=== PATIENT | female | born 1930 | race Caucasian/White ===

== ENCOUNTER 2019-06-21 13:23 | Observation (INO) ==
--- NOTE | 2019-06-21 14:32 | DR.URINEF ---
HPI Time Seen Time Seen by Provider: 06/21/19 14:32 PCP Primary Care Physician: IAN Complaint Chief Complaint Doctors Comments: 89yo female presented for AMS. Daughter reports mother woke up this morning and was more confused. She was took a urine dipstick and was concern for UTI. Pt reports increase frequency and dysuria. Denies any CP, SOB, abd pain, n/v or pain. Chief Complaint:: AMS, UTI SYMPTOMS Self Treatment fo Chief Complaint: NONE Reviewed Nurses Notes Reviewed: Yes Source History Provided: Patient and Family Member Mode of Arrival Mode of Arrival: Wheelchair Timing Onset of Chief Complaint: 06/21/19 Duration Duration: Intermittent Duration: Hours Context History of: UTI Quality Pain is: Burning Severity Pain: Mild Inability to Void: None Location Pain Location: None PMH PMH Past Medical History: Yes Past Medical History: Coronary Artery Disease, Dyslipidemia and Hyperthyroidism Past Surgical History: Yes Surgical History: Abdominal Surgery, Appendectomy, Hysterectomy, Mastectomy, Ortho Surgery and Tonsillectomy Past Surgical History Comment: COLON SURGERY Family History History of Family Medical Conditions: Yes Family Medical History: Coronary Artery Disease and Hypertension Social History Does patient currently use any type of tobacco product: No Have you used tobacco products in the last 12 months: No Type of Tobacco Use: None Does any household member use tobacco: No Alcohol Use: None Do you use any recreational Drugs:: No Lives With: Family Lives Where: Home infectious screening In the last 2 months have you had wt loss of >10#?: NO Have you had fever, night sweats or hemotysis?: No Have you traveled outside the country in the last 6 months?: No Isolation: Standard ROS Review of Systems Constitutional: negative Chills, Fever, Weakness and Loss of Appetite Eyes: negative Blurred Vision ENTM: negative Nose Congestion Respiratoy: negative Non-Productive Cough and Short of Breath Cardiovascular: negative Chest Pain and Edema Gastrointestinal/Abdominal: negative Abdominal Pain, Diarrhea, Nausea and Vomiting Genitourinary: Dysuria and Frequency; negative Hematuria and Bleeding Neurological: negative Weakness, Problems Walking and Speech Problem Musculoskeletal: negative Back Pain Integumentary: negative Rash Hematologic/Lymphatic: negative Easy Bleeding Endocrine: negative Decreased Appetite Psychiatric: negative Depression All Other Systems: Reviewed and Negative PE Vital Signs Vitals: Temperature 96.5 F Pulse Rate 76 Respiratory Rate 18 Blood Pressure [Right Arm] 134/67 Blood Pressure 166/72 O2 Sat by Pulse Oximetry 99 General Limitations: No Limitations General Appearance: Alert and In No Apparent Distress Head Head Exam: Normal Inspection, Atraumatic and Normocephalic Eyes Eye exam: Normal Appearance, PERRL and EOMI; negative Scleral Icterus ENT ENT Exam: Normal Exam, Normal Oropharynx and Mucous Membranes Moist Neck Neck Exam: Normal Inspection and Full ROM Respiratory Respiratory Exam: Normal Lung Sounds Bilat; negative Respiratory Distress Cardiovascular Cardiovascular Exam: Regular Rate and Normal Rhythm Abdominal Exam Abdominal Exam: Normal Inspection, Normal Bowel Sounds, Soft and Other (healing abd incision); negative Distention and Tenderness Extremities Extremities Exam: Normal Inspection, Full ROM and Normal Capillary Refill; negative Edema Back Back Exam: Normal Inspection and Full ROM; negative Tenderness, (R) CVA Tenderness and (L) CVA Tenderness Neurologic Neurological Exam: Alert, Oriented X3, Normal Gait and Reflexes Normal; negative Motor Sensory Deficit Psychiatric Psychiatric Exam: Normal Affect and Normal Mood Skin Skin Exam: Warm, Dry, Intact and Normal Color MDM Additional Information Obtained Additional Information Obtained From: Old Records Differential Diagnosis Differential Diagnosis: Pyelonephritis, Urinary retention and UTI COURSE Reevaluation 1st: Unchanged (pt at baseline. BP elevated. WIll order CT head and given Amlodipine 5mg x1. COntinue to monitor) 2nd: Improved (BP improving. D/w pt and family abn ct finding. Will admit for MRI and further evaluation) Consultation Consultation Comments: 17:[address] Cedillo for admission and will admit. Education/Counseling Education/Counseling: Patient, Family, Education and Counseling Educated On: Treatment, Diagnosis, Prognosis and Needs for Follow Up (pcp) ROR Labs Reviewed Laboratory Results Reviewed?: Yes Result Diagrams: 06/21/19 15:27 06/21/19 15:27 Laboratory: WBC 6.5 X10^3/uL (3.6-10.0) 06/21/19 15:27 RBC 3.76 X10^6/uL (3.5-5.4) 06/21/19 15:27 Hgb 11.5 g/dL (12.0-16.0) L 06/21/19 15:27 Hct 35.6 % (36.0-47.0) L 06/21/19 15:27 MCV 94.5 fL (80.0-100.0) 06/21/19 15:27 MCH 30.7 pg (27.0-34.0) 06/21/19 15: MCHC 32.5 g/dL (33.0-35.0) L 06/21/19: RDW 15.4 % (11.6-16.5) 06/21/19 15: Plt Count 123 X10^3/uL (150.0-450.0) L 06/21/19: MPV 9.2 fL (7.4-11.0) 06/21/19 15: Neut % (Auto) 58.4 % (42.0-75.0) 06/21/19: Lymph % (Auto) 30.7 % (21.0-51.0) 06/21/19: [place] % (Auto) 8.6 % (0.0-13.0) 06/21/19: Eos % (Auto) 1.5 % (0.9-2.9) 06/21/19: Baso % (Auto) 0.8 % (0.2-1.0) 06/21/19 15: Neut # (Auto) 3.8 x10^3/uL (2.2-4.8) 06/21/19: Lymph # (Auto) 2.0 X10^3/uL (1.3-2.9) 06/21/19 15: [place] # (Auto) 0.6 x10^3/uL (0.3-0.8) 06/21/19: Eos # (Auto) 0.1 x10^3/uL (0.0-0.2) 06/21/19 15: Baso # (Auto) 0.1 X10^3/uL (0.0-0.1) 06/21/19 15: Absolute Nucleated RBC 0.0 /100WBC 06/21/19 15: Sodium 141 mmol/L (136-145) 06/21/19 15: Corrected Sodium TNP 06/21/19 15: Potassium 3.5 mmol/L (3.5-5.1) 06/21/19: Chloride 107 mmol/L (98-107) 06/21/19 15: Carbon Dioxide 22.5 mmol/L (21-32) 06/21/19 15:27 BUN 9 mg/dL (7-18) 06/21/19 15:27 Creatinine 0.89 mg/dL (0.55-1.02) 06/21/19 15:27 Est GFR (MDRD) Af Amer > 60 (>60) 06/21/19 15:27 Est GFR (MDRD) Non-Af > 60 (>60) 06/21/19 15:27 Glucose 87 mg/dL (65-99) 06/21/19 15:27 Calcium 8.6 mg/dL (8.5-10.1) 06/21/19 15:27 Troponin I < 0.02 ng/mL (0-1.5) 06/21/19 15:27 Specimen Type Clean catch urine 06/21/19 14:21 Urine Color Yellow (YELLOW) 06/21/19 14:21 Urine Appearance Hazy (CLEAR) 06/21/19 14:21 Urine pH 6.0 (5.0 - 8.0) 06/21/19 14:21 Ur Specific [place] 1.020 (1.000-1.030) 06/21/19 14:21 Urine Protein 2+ (NEGATIVE) 06/21/19 14:21 Urine Glucose (UA) Negative (NEGATIVE) 06/21/19 14:21 Urine Ketones Negative (NEGATIVE) 06/21/19 14:21 Urine Occult Blood Negative (NEGATIVE) 06/21/19 14:21 Urine Nitrite Negative (NEGATIVE) 06/21/19 14:21 Urine Bilirubin Negative (NEGATIVE) 06/21/19 14:21 Urine Urobilinogen Normal (NORMAL) 06/21/19 14:21 Ur Leukocyte Esterase 1+ (NEGATIVE) 06/21/19 14:21 Urine RBC None seen /HPF (0-3) 06/21/19 14:21 Urine WBC 0-2 /HPF (0-5) 06/21/19 14:21 Ur Squamous Epith Cells Negative /HPF (NEGATIVE) 06/21/19 14:21 Urine Bacteria Negative /HPF (NEGATIVE) 06/21/19 14:21 Urine Mucus Few /HPF (NEGATIVE) 06/21/19 14:21 Ur Culture Indicated? No/not indicated 06/21/19 14:21 Other Results Comments: UA negative Hb 11.5, plt [address] head: low attenuation focus in the left cerebellar hemisphere concern for infarct vs hilda. recommend MRI with contrast XRAY XRAY Interpreted by: Radiologist EKG Rate: 74 [place]: Normal Rhythm: NSR Block: None Hypertrophy: None ST: Nonsp (Prolong QTc 514, t wave flatting in V1 V2 Lead II III. interpeted by me) Opioid Opioid Risk Tool Age (Pablo box if 16-45): No History of Preadolescent Sexual Abuse: No Total: 0 Total Score Risk Category: Low Risk Copyright: [facility] predicting aberrant behaviors Diagnosis Discharge Problem: Acute alteration in mental status, Abnormal CT scan of head, Hypertensive crisis Instructions Forms: Excuse From Work Patient Portal ADDITIONAL NOTES Additional Notes Additional Notes: I have personally reviewed your medications, lab results, imaging and time was spent discussion results. Patient educated on their health issue. They verbalized their understanding and agreed with plan of care. Instruction were given to patient at discharge. Condition: Stable Disposition: Admission
[2019-06-21 14:49] LABS: BILIRUBIN,URINE NEGATIVE (NEGATIVE); BLOOD/HEMOGLOBIN,URINE NEGATIVE (NEGATIVE); GLUCOSE, URINE NEGATIVE (NEGATIVE); KETONES,URINE NEGATIVE (NEGATIVE); LEUKOCYTE ESTERASE ,URINE 1+ (NEGATIVE); NITRITES,URINE NEGATIVE (NEGATIVE); PROTEIN,URINE 2+ (NEGATIVE); UROBILINOGEN,URINE NORMAL (NORMAL)
[2019-06-21 14:54] LABS: APPEARANCE,URINE HAZY (CLEAR); COLOR,URINE YELLOW (YELLOW)
[2019-06-21 14:55] LABS: BACTERIA,URINE NEGATIVE /HPF (NEGATIVE); MUCUS,URINE FEW /HPF (NEGATIVE); RBC,URINE NONE SEEN /HPF (0-3); SQUAMOUS EPITHELIAL CELL,UR NEGATIVE /HPF (NEGATIVE)
[2019-06-21] MEDS ORDERED: NS 1000 ML 1,000 ML IV ONE (14:57)
[2019-06-21] MEDS ORDERED: NS 1000 ML 1,000 ML ONE (15:02)
[2019-06-21 15:39] LABS: BASOPHILS # (AUTO) 0.1 X10^3/uL (0.0-0.1); BASOPHILS % (AUTO) 0.8 % (0.2-1.0); EOSINOPHILS # (AUTO) 0.1 x10^3/uL (0.0-0.2); EOSINOPHILS % (AUTO) 1.5 % (0.9-2.9); HEMATOCRIT 35.6 % (36.0-47.0); HEMOGLOBIN 11.5 g/dL (12.0-16.0); LYMPHOCYTES % (AUTO) 30.7 % (21.0-51.0); MEAN CORPUSCULAR HEMOGLOBIN 30.7 pg (27.0-34.0); MEAN CORPUSCULAR HGB CONC 32.5 g/dL (33.0-35.0); MEAN CORPUSCULAR VOLUME 94.5 fL (80.0-100.0); MEAN PLATELET VOLUME 9.2 fL (7.4-11.0); MONOCYTES # (AUTO) 0.6 x10^3/uL (0.3-0.8); MONOCYTES % (AUTO) 8.6 % (0.0-13.0); NEUTROPHILS # (AUTO) 3.8 x10^3/uL (2.2-4.8); NEUTROPHILS % (AUTO) 58.4 % (42.0-75.0); PLATELET COUNT 123 X10^3/uL (150.0-450.0); RED BLOOD COUNT 3.76 X10^6/uL (3.5-5.4); RED CELL DISTRIBUTION WIDTH 15.4 % (11.6-16.5); WHITE BLOOD COUNT 6.5 X10^3/uL (3.6-10.0)
[2019-06-21 15:56] LABS: BLOOD UREA NITROGEN 9 mg/dL (7-18); CALCIUM 8.6 mg/dL (8.5-10.1); CARBON DIOXIDE 22.5 mmol/L (21-32); CHLORIDE 107 mmol/L (98-107); CREATININE 0.89 mg/dL (0.55-1.02); SODIUM 141 mmol/L (136-145); eGFR NON BLACK RACES > 60 (>60)
[2019-06-21] MEDS ORDERED: NORVASC TAB 5 MG PO ONE (16:35)
--- NOTE | 2019-06-21 17:16 | CT ---
STUDY: CT HEAD WITHOUT CONTRAST HISTORY: Altered mental status. COMPARISON: February 18, 2019. TECHNIQUE: Multiple axial images of the head were obtained from the skull base to the vertex without administration of IV contrast. Automated exposure control (AEC) was utilized to adjust the MA and/or kV. Findings: The sulci, cisterns and ventricles are prominent consistent with diffuse volume loss. There are confluent and scattered foci of low attenuation in the periventricular and subcortical white matter of both hemispheres. This is a nonspecific finding which likely represents microangiopathic change in a patient of this age. There is a low-attenuation focus in the left cerebellar hemisphere that was not clearly present on the prior study. There is no evidence of acute hemorrhage, mass, mass effect or midline shift. There are no abnormal extra-axial fluid collections. There is no evidence of acute osseous abnormality or significant soft tissue swelling. IMPRESSION: 1. Low-attenuation focus in the left cerebellar hemisphere. A tiny low-attenuation focus may been present in the same location on the prior head CT. Top differential considerations would include an infarct or edema. 2. Nonspecific white matter change and volume loss as described. 3. An MRI examination the brain with gadolinium is recommended for further evaluation. Reported By:
[2019-06-21 20:27] VITALS: BMI 19.6
[2019-06-22 05:20] LABS: BASOPHILS % (AUTO) 0.7 % (0.2-1.0); EOSINOPHILS # (AUTO) 0.1 x10^3/uL (0.0-0.2); EOSINOPHILS % (AUTO) 2.2 % (0.9-2.9); HEMATOCRIT 31.4 % (36.0-47.0); HEMOGLOBIN 10.5 g/dL (12.0-16.0); LYMPHOCYTES # (AUTO) 1.2 X10^3/uL (1.3-2.9); LYMPHOCYTES % (AUTO) 27.3 % (21.0-51.0); MEAN CORPUSCULAR HEMOGLOBIN 31.1 pg (27.0-34.0); MEAN CORPUSCULAR HGB CONC 33.6 g/dL (33.0-35.0); MEAN CORPUSCULAR VOLUME 92.6 fL (80.0-100.0); MEAN PLATELET VOLUME 9.7 fL (7.4-11.0); MONOCYTES # (AUTO) 0.4 x10^3/uL (0.3-0.8); MONOCYTES % (AUTO) 9.7 % (0.0-13.0); NEUTROPHILS # (AUTO) 2.7 x10^3/uL (2.2-4.8); NEUTROPHILS % (AUTO) 60.1 % (42.0-75.0); PLATELET COUNT 99 X10^3/uL (150.0-450.0); RED BLOOD COUNT 3.39 X10^6/uL (3.5-5.4); RED CELL DISTRIBUTION WIDTH 15.3 % (11.6-16.5); WHITE BLOOD COUNT 4.5 X10^3/uL (3.6-10.0)
[2019-06-22 05:21] LABS: BLOOD UREA NITROGEN 8 mg/dL (7-18); CARBON DIOXIDE 21.7 mmol/L (21-32); CHLORIDE 109 mmol/L (98-107); CREATININE 0.74 mg/dL (0.55-1.02); SODIUM 141 mmol/L (136-145); eGFR NON BLACK RACES > 60 (>60)
[2019-06-22] MEDS ORDERED: POTASSIUM CHLORIDE LIQ 20 MEQ UDC PO PRN (05:51)
[2019-06-22] MEDS ORDERED: MICRO K EXTEN CAP 10 MEQ PO PRN (05:51)
[2019-06-22] MEDS ORDERED: POTASSIUM CHL 60 MEQ/NS 0.45% 500 ML IV PRN (05:51)
[2019-06-22] MEDS ORDERED: K-DUR TAB 20 MEQ PO PRN (05:51)
[2019-06-22] MEDS ORDERED: POTASSIUM CHL 40 MEQ/NS 0.45% 500 ML IV PRN (05:51)
[2019-06-22] MEDS ORDERED: KLOR-CON PO PRN (05:51)
[2019-06-22] MEDS ORDERED: K-RIDER 10 MEQ/NS 100 ML 10 MEQ/100 ML BAG IV PRN (05:51)
[2019-06-22] MEDS ORDERED: MAGNESIUM SULFATE 1 GRAM/100 mL PREMIX 1 G/100 ML BAG IV PRN (06:52)
[2019-06-22] MEDS ORDERED: VITAMINS A C E ZINC COPPER PO SCH (09:45)
[2019-06-22] MEDS: VALIUM PO PRN ×3 (10:54→21:00)
[2019-06-22] MEDS: MEGACE PO SCH (10:54)
[2019-06-22] MEDS: HEMOCYTE-PLUS PO SCH (10:55)
[2019-06-22] MEDS: SYNTHROID 88 mcg TAB PO SCH (10:55)
[2019-06-22] MEDS: MICRO K EXTEN CAP 10 MEQ PO SCH (10:56)
[2019-06-22] MEDS: ELIQUIS PO SCH ×2 (10:56→21:00)
[2019-06-22] MEDS: COZAAR PO SCH (10:56)
[2019-06-22] MEDS: INDERAL TAB 10 MG PO SCH (10:57)
--- NOTE | 2019-06-22 11:29 | DR.H&P ---
H&P - History & Physical for Day of: H&P Date: 06/21/19 - Chief Complaint Chief Complaint: AMS, WEAKNESS, DIZZINESS, NEAR SYNCOPE - History of Present Illness History of Present Illness: IS A 89 YEAR OLD PATIENT OF WHO PRESENTED TO THE ER WITH FAMILY REPORTING THAT PATIENT HAS HAD ALTERED MENTAL STATUS, WEAKNESS, DIZZINESS, AND NEAR SYNCOPE. HOME HEALTH NURSE CHECK URINE AND WAS CONCERNED THAT PATIENT MAY HAVE A UTI. SHE REPORTS INCREASE IN FREQUENCY AND DYSURIA. SHE DENIES CHEST PAIN, SHORTNESS OF BREATH, ABDOMINAL PAIN, OR NAUSEA/VOMITING. SHE RECENTLY HAD COLON SURGERY. SHE IS ALSO RECEIVING ELIQUIS 2.5MG PO BID DUE TO A BLOOD CLOT IN THE RIGHT ARM. ON ARRIVAL, VITALS WERE 96.5-76-18-99%-198/96. LABS WERE OBTAINED. ABNORMAL LAB VALUES INCLUDE THE FOLLOWING: HGB 11.5M HCT 35.6, PLT COUNT 123. A URINALYSIS WAS OBTAINED AND REVEALED: WBC 0-2, RBC NONE SEEN, BACTERIA NEGATIVE, LEUKOCYTES 1+. AN EKG WAS OBTAINED AND REVEALED: SINUS RHYTHM WITH HR 74. A BRAIN CT WAS OBTAINED AND REVEALED: 1. Low-attenuation focus in the left cerebellar hemisphere. A tiny low-attenuation focus may been present in the same location on the prior head CT. Top differential considerations would include an infarct or edema. Nonsp ecific white matter change and volume loss as described. An MRI examination the brain with gadolinium is recommended for further evaluation. SHE WAS GIVEN A NORMAL SALINE BOLUS AND NORVASC 5MG PO X 1 DOSE IN THE ER. BLOOD PRESSURE DECREASED TO 173/78. SHE WAS ADMITTED FOR FURTHER EVALUATION AND TREATMENT OF ALTERED MENTAL STATUS, GENERALIZED WEAKNESS, AND NEAR SYNCOPE. WE PLAN TO OBTAIN A BRAIN MRI IN THE MORNING. OTHERWISE, WE WILL FOLLOW UP WITH AM LABS AND CONTINUE TO MONITOR. - Past Medical History Past Medical History: Coronary Artery Disease, Dyslipidemia, Hyperthyroidism - Past Surgical History Surgical History: Abdominal Surgery, Appendectomy, Hysterectomy, Mastectomy, Ortho Surgery, Tonsillectomy - Family History Family Medical History: Coronary Artery Disease, Hypertension - Social History Does patient currently use any type of tobacco product: No Have you used tobacco products in the last 12 months: No Type of Tobacco Use: None Does any household member use tobacco: No Alcohol Use: None Drug Use: None Prescription drug monitoring program results: PDMP was not reviewed - Medications Home Medications: No Known Drug Allergies Allergy (Verified 06/21/19 17:55) CONTINUE taking the following medications apixaban [Eliquis] 2.5 mg PO BID 06/21/19 [History] ferrous sulfate 325 mg PO DAILY 06/21/19 [History] levothyroxine 88 mcg PO AC 06/21/19 [History] lorazepam 0.5 mg PO BID PRN 06/21/19 [History] losartan 50 mg PO DAILY 06/21/19 [History] megestrol 20 mg PO DAILY 06/21/19 [History] potassium chloride 10 meq PO DAILY 06/21/19 [History] propranolol 80 mg PO DAILY 06/21/19 [History] vitamins A,C,R-plky-zwbidy [PreserVision AREDS] 1 cap PO BID 06/21/19 [History] - Review of Systems Constitutional: See HPI, Weakness Eyes: No Symptoms Reported ENT: No Symptoms Reported Respiratory: No Symptoms Reported Cardiovascular: [place] Gastrointestinal: No Symptoms Reported Genitourinary: No Symptoms Reported Musculoskeletal: No Symptoms Reported Skin: No Symptoms Reported Neurological: See HPI, Weakness, Confusion - Physical Exam Vital Signs: Temperature 97.6 F Pulse Rate [Right] 66 Pulse Rate [Left Radial] 72 Pulse Rate 76 Respiratory Rate 18 Blood Pressure [Right Calf] 138/68 Blood Pressure [Right Arm] 171/79 Blood Pressure 171/79 O2 Sat by Pulse Oximetry 99 Oriented: Person Eyes: Normal Ear: Normal Nose: Normal Throat: Normal Respiratory: Diminished Throughout ( ) Cardiovascular: Normal : Normal Auscultation: Bowel Sounds: Normal Palpation: Normal Tenderness: Normal Skin: Normal Musculoskeletal: Normal Psychiatric: Normal Mood Description: Calm Affect: Normal Speech Pattern: Inappropriate - Assessment/Plan (1) Acute alteration in mental status Status: Acute Plan: ADMIT, BRAIN MRI IN AM, CONTINUE HOME MEDS (2) Generalized weakness Status: Acute (3) Near syncope Status: Acute (4) Dizziness Status: Acute - Review Patient was examined?: Yes - Allergies Allergies/Adverse Reactions: Allergies Allergy/AdvReac Type Severity Reaction Status Date / Time No Known Drug Allergies Allergy Verified 06/21/19 17:55
[2019-06-22] MEDS: MAG-OX TAB PO SCH (12:21)
--- NOTE | 2019-06-22 16:26 | VAS ---
HISTORY: Mental status change Study: Color-flow duplex Doppler studies of the neck vessels Comparison: None Technique: Multiple wild scale and color flow Doppler images of the right and left carotid arterial system were obtained. The vertebral arterial system was evaluated as well. Findings: There is normal color flow and Doppler signal seen throughout the right and left carotid arterial system. There is moderate calcified plaque along the proximal right internal carotid artery . The peak velocity is 124 centimeters/second distally. The ICA to CCA ratio is 2.5. There is no significant plaque or narrowing on the left. The ICA to CCA ratio on the left is 1.4. There is no spectral broadening . There is antegrade flow in the vertebrals. 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 Normal vertebral arteries. Reported By:
--- NOTE | 2019-06-22 17:11 | MRI ---
HISTORY: Altered mental status and abnormal CT. Study: MRI brain with and without contrast. Comparison: CT head dated June 21, 2019. Technique: Multiplanar multi-sequence MRI of the brain was before and after the uneventful administration of 11 cc MultiHance IV contrast. Findings: The midline structures appear intact. The posterior fossa is unremarkable. The sulcal markings of the brain are normal in their appearance. Age-related cortical atrophy and chronic small vessel ischemic changes. Otherwise, normal wild-white differentiation is maintained. No evidence for intraparenchymal hemorrhage or mass can be identified. No extra-axial fluid collections or subarachnoid hematoma can be seen. Evaluation of the diffusion weighted images demonstrates no evidence for acute ischemic change. The cerebral pontine angle is normal in its contour without evidence for mass. The ventricular system appears symmetric and nondilated. Postcontrast enhancement demonstrates no evidence for an enhancing lesion such as mass or vascular malformation. IMPRESSION: No MRI evidence of acute ischemia/infarction. Reported By:
--- NOTE | 2019-06-22 23:02 | PCM.PROG ---
Progress Note - Progress Note for Day of Date of Exam: 06/22/19 - Subjective Subjective: WAS ADMITTED FOR ALTERED MENTAL STATUS, DIZZINESS, WEAKNESS, AND NEAR SYNCOPE. TODAY, SHE IS ALERT, LYING IN BED ON MORNING ROUNDS. SHE CONTINUES TO BE DISORIENTED. FAMILY REPORTS THAT DISORIENTATION HAS BEEN PERSISTENT SINCE YESTERDAY. ON EXAMINATION, HEART IS REGULAR IN RATE AND RHYTHM. BILATERAL LUNGS ARE NOTED WITH DIMINISHED LUNG SOUNDS THROUGHOUT. ABDOMEN IS ROUND, SOFT, AND NON-TENDER WITH NORMAL BOWEL SOUNDS NOTED IN ALL QUADRANTS. HER VITALS THIS MORNING ARE: 97.6-62-18-98%-138/68. LABS WERE OBTAINED. ABNORMAL LAB VALUES INCLUDE THE FOLLOWING: RBC 3.39, HGB 10.5, HCT 31.4, PLT COUNT 99, POTASSIUM 3.0, CHLORIDE 109, CALCIUM 8.0, MAGNESIUM 1.5. TODAY, WE WILL OBTAIN A BRAIN MRI, A CAROTID DOPPLER, AND AN ECHO. WE WILL START VALIUM 5MG PO BID PRN. OTHERWISE, WE PLAN TO FOLLOW UP WITH AM LABS AND CONTINUE TO MONITOR. - Past Medical Family Social History Past Med/Fam/Surg Hx: No changes since H&P Allergies: Allergies No Known Drug Allergies Allergy (Verified 06/21/19 17:55) - Review of Systems ROS: No change since H&P - Vital Signs and I&O's Vital Signs: Temperature 98.6 F Pulse Rate [Right] 65 Pulse Rate [Left Radial] 72 Pulse Rate 76 Respiratory Rate 18 Blood Pressure [Right Calf] 135/66 Blood Pressure [Right Arm] 171/79 Blood Pressure 171/79 O2 Sat by Pulse Oximetry 96 Intake and Output: Intake & Output 06/20/19 06/21/19 06/22/19 06/23/19 11:59 11:59 11:59 11:59 Intake Total 0 / 0 Balance 0 / 0 - Physical Exam Oriented: Person Eyes: Normal Ear: Normal Nose: Normal Throat: Normal Cardiovascular: Normal : Normal Auscultation: Bowel Sounds: Normal Palpation: Normal Tenderness: Normal Skin: Normal Musculoskeletal: Normal Psychiatric: Normal Mood Description: Calm Affect: Normal Speech Pattern: Inappropriate - Laboratory and Diagnostics Result Diagrams: 06/22/19 04:04 06/22/19 13:08 Labs: Laboratory WBC 4.5 X10^3/uL (3.6-10.0) 06/22/19 04:04 RBC 3.39 X10^6/uL (3.5-5.4) L 06/22/19 04:04 Hgb 10.5 g/dL (12.0-16.0) L 06/22/19 04:04 Hct 31.4 % (36.0-47.0) L 06/22/19 04:04 MCV 92.6 fL (80.0-100.0) 06/22/19 04:04 MCH 31.1 pg (27.0-34.0) 06/22/19 04:04 MCHC 33.6 g/dL (33.0-35.0) 06/22/19 04:04 RDW 15.3 % (11.6-16.5) 06/22/19 04:04 Plt Count 99 X10^3/uL (150.0-450.0) L 06/22/19 04:04 MPV 9.7 fL (7.4-11.0) 06/22/19 04:04 Neut % (Auto) 60.1 % (42.0-75.0) 06/22/19 04:04 Lymph % (Auto) 27.3 % (21.0-51.0) 06/22/19 04:04 [place] % (Auto) 9.7 % (0.0-13.0) 06/22/19 04:04 Eos % (Auto) 2.2 % (0.9-2.9) 06/22/19 04:04 Baso % (Auto) 0.7 % (0.2-1.0) 06/22/19 04:04 Neut # (Auto) 2.7 x10^3/uL (2.2-4.8) 06/22/19 04:04 Lymph # (Auto) 1.2 X10^3/uL (1.3-2.9) L 06/22/19 04:04 [place] # (Auto) 0.4 x10^3/uL (0.3-0.8) 06/22/19 04:04 Eos # (Auto) 0.1 x10^3/uL (0.0-0.2) 06/22/19 04:04 Baso # (Auto) 0.0 X10^3/uL (0.0-0.1) 06/22/19 04:04 Absolute Nucleated RBC 0.1 /100WBC 06/22/19 04:04 Sodium 141 mmol/L (136-145) 06/22/19 04:04 Corrected Sodium TNP 06/22/19 04:04 Potassium 4.4 mmol/L (3.5-5.1) 06/22/19 13:08 Chloride 109 mmol/L (98-107) H 06/22/19 04:04 Carbon Dioxide 21.7 mmol/L (21-32) 06/22/19 04:04 BUN 8 mg/dL (7-18) 06/22/19 04:04 Creatinine 0.74 mg/dL (0.55-1.02) 06/22/19 04:04 Est GFR (MDRD) Af Amer > 60 (>60) 06/22/19 04:04 Est GFR (MDRD) Non-Af > 60 (>60) 06/22/19 04:04 Glucose 86 mg/dL (65-99) 06/22/19 04:04 Calcium 8.0 mg/dL (8.5-10.1) L 06/22/19 04:04 Magnesium 1.5 mg/dL (1.7-2.9) L 06/22/19 04:04 Troponin I < 0.02 ng/mL (0-1.5) 06/21/19 15:27 Specimen Type Clean catch urine 06/21/19 14:21 Urine Color Yellow (YELLOW) 06/21/19 14:21 Urine Appearance Hazy (CLEAR) 06/21/19 14:21 Urine pH 6.0 (5.0 - 8.0) 06/21/19 14:21 Ur Specific [place] 1.020 (1.000-1.030) 06/21/19 14:21 Urine Protein 2+ (NEGATIVE) 06/21/19 14:21 Urine Glucose (UA) Negative (NEGATIVE) 06/21/19 14:21 Urine Ketones Negative (NEGATIVE) 06/21/19 14:21 Urine Occult Blood Negative (NEGATIVE) 06/21/19 14:21 Urine Nitrite Negative (NEGATIVE) 06/21/19 14:21 Urine Bilirubin Negative (NEGATIVE) 06/21/19 14:21 Urine Urobilinogen Normal (NORMAL) 11/12/19 14:21 Ur Leukocyte Esterase 1+ (NEGATIVE) 06/21/19 14:21 Urine RBC None seen /HPF (0-3) 06/21/19 14:21 Urine WBC 0-2 /HPF (0-5) 06/21/19 14:21 Ur Squamous Epith Cells Negative /HPF (NEGATIVE) 06/21/19 14:21 Urine Bacteria Negative /HPF (NEGATIVE) 06/21/19 14:21 Urine Mucus Few /HPF (NEGATIVE) 06/21/19 14:21 Ur Culture Indicated? No/not indicated 06/21/19 14:21 - Plan (1) Acute alteration in mental status Status: Acute Plan: OBTAIN BRAIN MRI, CAROTID DOPPLER, AND ECHO, CONTINUE HOME MEDS AND CONTINUE TO MONITOR (2) Generalized weakness Status: Acute (3) Near syncope Status: Acute (4) Dizziness Status: Acute
[2019-06-23 04:51] LABS: BASOPHILS % (AUTO) 0.8 % (0.2-1.0); EOSINOPHILS # (AUTO) 0.1 x10^3/uL (0.0-0.2); EOSINOPHILS % (AUTO) 2.3 % (0.9-2.9); HEMATOCRIT 31.5 % (36.0-47.0); HEMOGLOBIN 10.5 g/dL (12.0-16.0); LYMPHOCYTES # (AUTO) 1.4 X10^3/uL (1.3-2.9); LYMPHOCYTES % (AUTO) 30.8 % (21.0-51.0); MEAN CORPUSCULAR HEMOGLOBIN 31.1 pg (27.0-34.0); MEAN CORPUSCULAR HGB CONC 33.2 g/dL (33.0-35.0); MEAN CORPUSCULAR VOLUME 93.6 fL (80.0-100.0); MEAN PLATELET VOLUME 9.5 fL (7.4-11.0); MONOCYTES # (AUTO) 0.5 x10^3/uL (0.3-0.8); MONOCYTES % (AUTO) 10.8 % (0.0-13.0); NEUTROPHILS # (AUTO) 2.5 x10^3/uL (2.2-4.8); NEUTROPHILS % (AUTO) 55.3 % (42.0-75.0); PLATELET COUNT 90 X10^3/uL (150.0-450.0); RED BLOOD COUNT 3.37 X10^6/uL (3.5-5.4); WHITE BLOOD COUNT 4.5 X10^3/uL (3.6-10.0)
[2019-06-23 05:00] LABS: ALANINE AMINOTRANSFERASE < 6 Units/L (12-78); ALBUMIN 2.4 g/dL (3.4-5.0); ALKALINE PHOSPHATASE 133 Units/L (46-116); ASPARTATE AMINO TRANSFERASE 16 Units/L (15-37); BLOOD UREA NITROGEN 7 mg/dL (7-18); CALCIUM 8.3 mg/dL (8.5-10.1); CHLORIDE 111 mmol/L (98-107); COR CA(FOR HYPOALB) 9.6 mg/dL (8.5-10.1); CREATININE 0.72 mg/dL (0.55-1.02); MAGNESIUM 1.8 mg/dL (1.7-2.9); SODIUM 143 mmol/L (136-145); TOTAL PROTEIN 5.1 g/dL (6.4-8.2); eGFR NON BLACK RACES > 60 (>60)
[2019-06-23] MEDS: MAG-OX TAB PO SCH (06:28)
[2019-06-23] MEDS: INDERAL TAB 10 MG PO SCH (09:16)
[2019-06-23] MEDS: MEGACE PO SCH (09:17)
[2019-06-23] MEDS: SYNTHROID 88 mcg TAB PO SCH (09:18)
[2019-06-23] MEDS: COZAAR PO SCH (09:18)
[2019-06-23] MEDS: HEMOCYTE-PLUS PO SCH (09:18)
[2019-06-23] MEDS: ELIQUIS PO SCH (09:18)
[2019-06-23] MEDS: MICRO K EXTEN CAP 10 MEQ PO SCH (09:18)
[2019-06-23] MEDS ORDERED: IMODIUM CAP 2 MG PO ONE ×2 (11:34→11:54)
[2019-06-23 12:12] VITALS: BP 147/53
== END 2019-06-23 12:16 | disposition home or self-care (01) ==
LOC: ER 13:24 → MED/SURG 13:24
PROVIDERS: ADMIT Internal Medicine; ATTEND Internal Medicine
CPT/HCPCS: 36415; 70450; 70553; 80048; 80053; 81001; 83735; 84132; 84484; 85025; 93005; 93306; 93880; 96360; 96361; 96365; 97165; 99284; A4222; S0179; G0378; J7030